=== PATIENT | female | born 1975 | race Two or more races ===

== ENCOUNTER 2022-03-14 09:44 | Outpatient (CLI) | payer OTHER | END 2022-03-14 09:48 | disposition home or self-care (01) | LOC: SONOGRAMA 09:44 | PROVIDERS: ATTEND Pathology Anatomic Pathology & Clinical Pathology | DX: R22.1 Localized swelling, mass and lump, neck (principal) ==

== ENCOUNTER 2022-06-11 08:15 | Inpatient (IN) | payer OTHER ==
[~2022-06-11] VITALS: Ht 170.2 cm; Wt 63.5 kg
== END 2022-06-15 13:53 | disposition home or self-care (01) | DRG 580 ==
LOC: O/R 06-14 05:16 → SURH 06-14 07:00 → SURG 06-14 17:24
PROVIDERS: ADMIT Otolaryngology; ATTEND Otolaryngology
PROC: 0CTPXZZ Resection of Tonsils, External Approach (ICD-10-PCS; 2022-06-14)
PROC: 0CJS8ZZ Inspection of Larynx, Via Natural or Artificial Opening Endoscopic (ICD-10-PCS; 2022-06-14)
PROC: 07T20ZZ Resection of Left Neck Lymphatic, Open Approach (ICD-10-PCS; principal; 2022-06-14 11:50)
DX: C44.42 Squamous cell carcinoma of skin of scalp and neck (principal); C77.0 Secondary and unspecified malignant neoplasm of lymph nodes of head, face and neck; Z20.822 Contact with and (suspected) exposure to COVID-19

== ENCOUNTER 2023-08-19 07:44 | Outpatient (CLI) | payer OTHER | END 2023-08-19 07:47 | disposition home or self-care (01) | LOC: NUCLEAR 07:44 | DX: C77.0 Secondary and unspecified malignant neoplasm of lymph nodes of head, face and neck (principal) ==